=== PATIENT | male | born 1980 | race Asian ===

== ENCOUNTER 2017-01-19 08:45 | Emergency (ER) | payer OTHER ==
--- NOTE | 2017-01-19 09:00 | ED Physician Chart ---
Chief Complaint/HPI - Patient Information Date Seen:: 01/19/17 Time Seen:: 09:00 Chief Complaint:: WRIST LACERATION History of Present Illness:: This right-handed 36-year-old male was cleaning a Amandeep jar this a.m. which broke and caused a laceration in the area of the right wrist. He is having moderate pain and oozing from the region. His tetanus status is unknown but over 5 years. He has no numbness in his right hand. No other injuries. Allergies:: Allergies Allergy/AdvReac Type Severity Reaction Status Date / Time No Known Allergies Allergy Verified 01/19/17 08:58 Review of Systems - Review of Systems General/Constitutional: No fever, No chills, No diaphoresis, No edema Skin: No rash, No bruising, Other (laceration of approximately 1-1/2 inches over the ulnar aspect of the right wrist.) Head: No headache, No light-headedness Eyes: No loss of vision, No pain, No diplopia ENT: No earache, No sore throat, No tinnitus Neck: No neck pain, No stiffness, No mass noted Cardio Vascular: No chest pain, No palpitations Pulmonary: No SOB, No cough, No sputum GI: No nausea, No vomiting, No pain, Other (the patient has chronic periodic episodes of diarrhea. The most recent was one week ago.) G/U: No dysuria, No frequency, No hematuria Musculoskeletal: No bone or joint pain, No back pain, No muscle pain Endocrine: No polyuria, No polydipsia Psychiatric: No prior psych history, No anxiety, No suicidal ideation Hematopoietic: No bruising, No lymphadenopathy Allergic/Immuno: No urticaria, No angioedema Neurological: No syncope, No focal symptoms, No weakness, No paresthesia, No seizure, No dizziness, No confusion Past Medical History - Past Medical History Past Medical History: No significant medical hx Social History: Non Smoker, No Drug Use, , Employed, Other (social use of alcohol) Employment:: 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 Family Medical History - Family Member Mother Living Status: Hx Family Cancer: Yes Physical Exam - Physical Examination General/Constitutional: Awake, Well-developed, well-nourished, Alert, No distress, GCS 15, Non-toxic appearing, Ambulatory Head: Atraumatic Eyes: Lids, conjuctiva normal, PERRL, EOMI Skin: No rash, Well hydrated, No lymphadenopathy ENMT: External ears, nose nl, Oropharynx nl Neck: Nontender, No JVD Other Neck comments:: H and a half full-thickness laceration over the volar surface of the right wrist. There is no arterial bleeding but he does have venous bruising in the region. He partially transected piece of tendon is visible on visual exploration. On digital exploration I was unable to palpate any glass foreign bodies. Respiratory: Nl effort/Exclusion Other Cardio Vascular comments:: Capillary refill and distal pulses were adequate in all 4 extremities. GI: No tenderness/rebounding/guarding Extremities: No tenderness or effusion, normal strength in all extremities, No edema Neuro/Psych: Alert/oriented, Normal sensory exam (sensory examination was normal to light touch in all the digits of the right hand.), Judgement/insight normal, Mood normal, Normal gait, No focal deficits Misc: Normal back Labs/Radiology/EKG Results - Radiology Results Results: 3 views of the right wrist were obtained. No radial opaque foreign bodies. There is a significant amount of subcutaneous air. No fractures or dislocation. Assessment - Assessment General Assessment: CASE SUMMARY: This 36-year-old right-handed male presents with acute laceration to the right lateral wrist region. Except approximately 1-1/2 inches in length and on visual inspection of portion of the lacerated tendon could be viewed. On digital examination no foreign bodies were present. An x-ray of the involved region showed subcutaneous air with no soft tissue foreign bodies. Laceration was repaired with 4 sutures of 3-0 Prolene. It was dressed with triple antibiotic ointment and covered with a dried sterile dressing. Patient received a booster for tetanus immunization. He was advised that suture removal should occur in 10 days and he can either return here or see his primary care physician. He was advised to see his primary care physician for orthopedic referral for evaluation of possible tendon injury in that region. Patient was advised to use ibuprofen or acetaminophen for control of laceration pain. Discharged in stable condition. [facility] DDX for Right wrist LACERATION: NO Foreign Bodies on examination and negative x-ray. NO bony fracture based on negative x-ray. NO arterial bleeding based on visual exploration of the wound. ED Septic Shock - . Is Septic Shock (SBP<90, OR Lactate>4 mmol\L) present?: No Reassessment (Disposition) - Reassessment Reassessment Condition:: Improved - Diagnosis Diagnosis:: 4 CM , FULL THICKNESS LACERATION OF THE RIGHT VOLAR WRIST PARTIAL TENDON LACERATION OF THE RIGHT WRIST. - Aftercare/Follow up Instructions Aftercare/Follow-Up Instructions:: Counseled pt & family regarding lab results/ diagnosis & need follow up - Patient Disposition Discharge/Transfer:: Home ED Discharge Plan - Patient Disposition Instructions: Laceration Care, Adult
[2017-01-19] MEDS ORDERED: Triple Antibiotic 0.94 gm Pkt TP STA (09:25)
[2017-01-19] MEDS ORDERED: Triple Antibiotic 0.94 gm Pkt TP ONE (09:42)
--- NOTE | 2017-01-19 10:11 | Diagnostic Imaging Report ---
Right wrist 3 views Indication: Glass foreign body Comparison: none Findings: There are pockets of gas seen within the regional soft tissues. There are few punctate density seen along the dorsal aspect of the distal radial ulnar shafts which may be artifactual less likely foreign bodies. No evidence of acute fracture. Impression: Evidence of soft tissue injury with pockets of gas seen in the regional soft tissues. There punctate density seen along the dorsal aspect of the distal radial and ulnar shafts which is likely to be artifactual. Small foreign body be considered less likely. Given history of glass injury clinical correlation and short-term follow-up is recommended. No evidence of an acute fracture. In the setting of trauma, if clinical symptoms persist and there is continued concern for an occult fracture, follow up exams in 5-7 days is suggested.
== END 2017-01-19 10:01 | disposition home or self-care (01) ==
LOC: ER 08:45
DX: S61.511A Laceration without foreign body of right wrist, initial encounter (principal); X58.XXXA Exposure to other specified factors, initial encounter; Y93.G1 Activity, food preparation and clean up; Y92.89 Other specified places as the place of occurrence of the external cause; Y99.8 Other external cause status
CPT/HCPCS: 12002; 73110-TC-RT; X7704; Z7502; Z7610